=== PATIENT | male | born 1990 | race Hispanic/Latino ===

== ENCOUNTER 2020-02-08 23:03 | Emergency (ER) | payer SELFPAY ==
[2020-02-08] MEDS ORDERED: KETOROLAC TROMETHAMINE 60 MG/2 ML VIAL ONE (23:25)
[2020-02-08 23:34] LABS: BASOPHILS % (AUTO) 0.2 % (0.0-5.0); EOSINOPHILS % (AUTO) 0.8 % (0.0-8.0); HEMATOCRIT 41.8 % (42-54); LYMPHOCYTES % (AUTO) 19.4 % (21.0-51.0); MEAN CORPUSCULAR HEMOGLOBIN 28.4 pg (27.0-33.0); MEAN CORPUSCULAR HGB CONC 34.7 g/dL (32.0-36.0); MONOCYTES % (AUTO) 8.7 % (3.0-13.0); NEUTROPHILS % (AUTO) 70.7 % (40.0-77.0); PLATELET COUNT (AUTO) 235 K/uL (130-400); RED CELL DISTRIBUTION WIDTH 12.7 % (11.0-15.5); WHITE BLOOD COUNT (AUTO) 12.6 K/uL (4.8-10.8)
[2020-02-09] MEDS ORDERED: CEFTRIAXONE SODIUM 1 GM ONE (00:25)
[2020-02-09] MEDS ORDERED: LIDOCAINE HCL-MPF 1% 2ML VIAL ONE (00:25)
== END 2020-02-09 00:37 | disposition home or self-care (01) ==
LOC: EDH 23:03
DX: M70.22 Olecranon bursitis, left elbow (principal)
CPT/HCPCS: 36415; 73070; 82948; 85025; 86140; 96372 ×2; 99284; J0696; J1885; J3490

== ENCOUNTER 2020-03-09 23:07 | Emergency (ER) | payer OTHER ==
[2020-03-09] MEDS ORDERED: IBUPROFEN 600 MG TABLET ONE (23:52)
[2020-03-09] MEDS ORDERED: ACETAMINOPHEN EXTRA STRENGTH 500 MG TABLET ONE (23:52)
== END 2020-03-10 00:14 | disposition home or self-care (01) ==
LOC: EDH 23:07
DX: S93.402A Sprain of unspecified ligament of left ankle, initial encounter (principal); X58.XXXA Exposure to other specified factors, initial encounter; Y93.89 Activity, other specified; Y92.89 Other specified places as the place of occurrence of the external cause; Y99.8 Other external cause status
CPT/HCPCS: 29515; 73610

== ENCOUNTER 2021-04-02 13:01 | Emergency (ER) | payer OTHER ==
[~2021-04-02] VITALS: Ht 167.6 cm; Wt 74.8 kg
== END 2021-04-02 17:27 | disposition left against medical advice (07) ==
LOC: EDH 13:01
DX: H57.89 Other specified disorders of eye and adnexa (principal); Z53.21 Procedure and treatment not carried out due to patient leaving prior to being seen by health care provider

== ENCOUNTER 2022-06-30 12:45 | Emergency (ER) | payer OTHER ==
[~2022-06-30] VITALS: Ht 165.1 cm; Wt 70.3 kg
[2022-06-30 12:50] VITALS: BP 137/84
== END 2022-06-30 13:46 | disposition left against medical advice (07) ==
LOC: EDH 12:45
DX: R03.0 Elevated blood-pressure reading, without diagnosis of hypertension (principal); Z53.21 Procedure and treatment not carried out due to patient leaving prior to being seen by health care provider